=== PATIENT | female | born 1995 | race Caucasian/White ===

== ENCOUNTER 2023-12-12 09:41 | Emergency (ER) | payer BC ==
[~2023-12-12] VITALS: Ht 165.1 cm; Wt 70.0 kg
[2023-12-12 09:43] VITALS: O2SAT 98
[2023-12-12] MEDS: ONDANSETRON HCL 4MG/2ML INJ IV ONE (10:09)
[2023-12-12] MEDS: ONDANSETRON HCL 4MG/2ML INJ IV STA (10:11)
[2023-12-12] MEDS: SODIUM CHLORIDE 0.9% 1,000 ML IV ONE (10:27)
[2023-12-12] MEDS ORDERED: ONDA-239 PO (11:17)
[2023-12-12 11:31] VITALS: BP 125/78; PULSE 103; RESP 16; TEMP 36.94740; O2SAT 98
== END 2023-12-12 11:30 | disposition home or self-care (01) ==
LOC: ER 09:41
DX: R11.2 Nausea with vomiting, unspecified (principal); R42 Dizziness and giddiness; F12.90 Cannabis use, unspecified, uncomplicated; Z88.0 Allergy status to penicillin
CPT/HCPCS: 96374; 99283; J2405; J7030; Z7610 ×2